=== PATIENT | male | born 1955 | race Caucasian/White ===

== ENCOUNTER 2025-07-12 17:17 | Emergency (ER) | payer OTHER ==
[~2025-07-12] VITALS: Ht 185.4 cm; Wt 82.1 kg
[2025-07-12 17:23] VITALS: TEMP 97
[2025-07-12] MEDS: HYDROcodone/acetaminophen 10/325mg tab PO ONE ×2 (17:52→19:23)
[2025-07-12] MEDS: amox tr/potassium clavulanate 875/125mg TAB PO ONE (18:07)
[2025-07-12] MEDS: TETanus/Pertussis (Acell)/Diphther VAC/PF (Tdap-Adult) 0.5ml syringe IMVAC ONE (18:08)
[2025-07-12] MEDS: LIDOcaine 1% W/epiNEPHrine 1:100,000 20ml vial IJ ONE (18:09)
--- NOTE | 2025-07-12 18:27 | Physician Documentation ---
History of Present Illness ~ Chief Complaint: Bite-animal Stated Complaint: DOG BITE Time Seen by MD: 17:36 Source: patient Mode of Arrival: POV, Ambulatory Exam Limitations: no limitations HPI 69-year-old male with chief complaint dog bites to left hand and right forearm and right hand that occurred from his dog just prior to arrival. He states he was playing fetch with his dog when his dog bit his arm rather than the stick. This has never happened before. Dog has had all of his immunizations. He has had the dogs since a valgus 6-month-old in the dog is now a two and a years old. Tetanus within 5 years?: Yes Medication Reconciliation Allergies: Coded Allergies: No Known Allergies (Unverified , 07/12/25) Scheduled Amox Tr/Potassium Clavulanate (Augmentin 875-125 Tablet), 1 TAB PO Q12H Scheduled PRN Hydrocodone Bit/Acetaminophen (Hydrocodon-Acetaminophn 10-325 tablet), 1 TAB PO QID PRN PRN for pain Past Medical History Past Medical History: Chronic Back Pain, *PSYCH* (PTSD ) Past Surgical History: noncontributory Lives with: Alone Lives In: Home Review of Systems All Other Systems at this time: Reviewed and Negative Physical Exam Vital Signs: Temperature: 97.0, Source: Temporal, Heart Rate: 66, Respiratory Rate: 16, BP: 172/97, Pulse Oximetry: 98, Weight: 82.100 Oxygen Flow Rate: 0 Physical Exam General Appearance: Alert, WD/WN. NAD. HEENT: NCAT, PERRL, EOMI. Neck: Supple, trachea midline. Cardiovascular: RRR. No m/r/g. PV: Radial pulses 2+ bilaterally, cap refill less than 2 seconds at digits Lungs: CTAB. Breathing unlabored Extremities: Left hand: Bite to left dorsal surface of hand which is a puncture wound that has covered with a flap skin, no active bleeding, no surrounding ecchymosis, erythema or edema. Active range motion of the left hand digits full. Right forearm: On volar surface of forearm there are two lacerations that are approximately 4 cm in length each and are fairly deep visible fat, on the dorsal surface of the distal forearm there two puncture wounds. Active range motion of right hand and digits full. Skin: lacerations and punctures wounds described above. Neurological: Alert and oriented x4, normal gait. Psychiatric: Affect congruent with mood. Procedures Laceration/Wound Repair Laceration/Wound Repair #1: Location: RIGHT FOREARM Length (cm): 4 Anesthesia: Lidocaine w/ Epi Volume Anesthetic (mls): 5 Prep: irrigated by nurse Irrigated w/ Saline (mls): 500 Debrided: minimal Undermining: none Margins: revised Foreign Body: not identified Repaired: skin Wound Repaired With: sutures Suture Size/Type: 4-0, ethilon Dressing Applied: simple Tolerated Procedure Well?: yes, no complications Laceration/Wound Repair #2: Location: RIGHT FOREARM Length (cm): 4 Anesthesia: Lidocaine w/ Epi Volume Anesthetic (mls): 5 Prep: irrigated by nurse Irrigated w/ Saline (mls): 500 Debrided: minimal Undermining: none Margins: revised Foreign Body: not identified Repaired: skin Wound Repaired With: sutures Suture Size/Type: 4-0, ethilon Dressing Applied: simple Tolerated Procedure Well?: yes, no complications Laceration/Wound Repair #3: Location: RIGHT FOREARM Length (cm): 1 Anesthesia: Lidocaine w/ Epi Volume Anesthetic (mls): 2 Prep: irrigated by nurse Irrigated w/ Saline (mls): 250 Debrided: minimal Undermining: none Margins: revised Foreign Body: not identified Repaired: skin Wound Repaired With: sutures Suture Size/Type: 4-0, ethilon Dressing Applied: simple Tolerated Procedure Well?: yes, no complications Laceration/Wound Repair #4: Location: RIGHT FOREARM Length (cm): 1 Anesthesia: Lidocaine w/ Epi Volume Anesthetic (mls): 250 Prep: irrigated by nurse Debrided: minimal Undermining: none Margins: revised Foreign Body: not identified Repaired: skin Wound Repaired With: sutures Suture Size/Type: 4-0, ethilon Dressing Applied: simple Tolerated Procedure Well?: yes, no complications Progress Results/Orders Results/Orders Orders - DELILAH CAMPOS Laceration/I&D Tray Set Up (07/12/25 17:58) Completed Orders - DELILAH CAMPOS Hydrocodone/Apap 10/325 ([place] 10/325mg (07/12/25 17:45) Lidocaine 1% W/Epi 1:100,000 (Xylocaine (07/12/25 18:00) Tetanus/Pertuss/Diph Acell/Pf (Boostrix (07/12/25 18:00) Amox Tr/Potassium Clavulanate (Augmentin (07/12/25 18:00) Hydrocodone/Apap 10/325 ([place] 10/325mg (07/12/25 19:15) Vital Signs 07/12/25 07/12/25 07/12/25 07/12/25 17:23 17:37 17:37 17:52 Temp 97.0 Pulse 70 66 Resp 18 16 16 16 B/P (MAP) 168/91 172/97 (122) Pulse Ox 97 98 O2 Flow Rate 0 0 07/12/25 19:36 Pulse 67 Resp 20 B/P (MAP) 148/68 Pulse Ox 97 Medical Decision Making Additional information obtaine: N/A Findings n/a Differential Dx:Considerations: Include: Abrasion, Allergic reaction, Anaphylaxis, Cellulitis, Contusion, Fracture, Hematoma, Insect envenomation, Laceration, Neurovascular injury, Punture wound, Retained foreign body, Urticaria, Other Additional Comment Patient has no evidence for neurovascular injury he is moving his fingers in his hands normally with full AROM. Departure Time of Disposition: 18:29 Disposition: 01 HOME / SELF CARE / HOMELESS Impression: Primary Impression: Dog bite Qualified Codes: W54.0XXA - Bitten by dog, initial encounter Additional Impression: Immunization due Condition: Stable Discharge Instructions: Animal Bite, Adult Additional Instructions: SUTURES NEED TO BE REMOVED IN 7DAYS ANTIBIOTICS SENT TO PHARMACY Referrals: NO PRIMARY CARE PROVIDER (PCP) Prescriptions Hydrocodone Bit/Acetaminophen (Hydrocodon-Acetaminophn 10-325 tablet) 10mg- 325mg Tablet 1 TAB PO QID PRN PRN for pain for 4 Days, #16 TAB DX: DOG BITE W54.0XXA Prov: DELILAH CAMPOS 07/12/25 Amox Tr/Potassium Clavulanate (Augmentin 875-125 Tablet) 1 Each Tablet 1 TAB PO Q12H for 10 Days, #20 TAB Prov: DELILAH CAMPOS 07/12/25 Education Educated: Patient Educated regarding: diagnosis, treatment, need for follow up Signature Scribe Signature: x Attestation: DELILAH Aj Jul 12, 2025 18:27
[2025-07-12] MEDS ORDERED: HYDR-3972 PO (18:28)
[2025-07-12] MEDS ORDERED: AMOX-117 PO (18:28)
[2025-07-12 19:36] VITALS: BP 148/68; PULSE 67; RESP 20; O2SAT 97
== END 2025-07-12 19:38 | disposition home or self-care (01) ==
LOC: ER 17:18
DX: S61.452A Open bite of left hand, initial encounter (principal); G89.29 Other chronic pain; W54.0XXA Bitten by dog, initial encounter; Y93.89 Activity, other specified; Y92.89 Other specified places as the place of occurrence of the external cause; Y99.8 Other external cause status
CPT/HCPCS: 12004; 90471; 90715; 99284; A6222; A6223; J3490; A6449

== ENCOUNTER 2025-08-30 10:48 | Emergency (ER) | payer OTHER ==
[~2025-08-30] VITALS: Ht 185.4 cm; Wt 80.5 kg
[2025-08-30 11:02] VITALS: BP 133/67; PULSE 68; RESP 18; TEMP 98; O2SAT 96
[2025-08-30] MEDS: LIDOcaine 1% W/epiNEPHrine 1:100,000 20ml vial IJ ONE (11:43)
[2025-08-30] MEDS: bacitracin 15gm ointment TP ONE (11:43)
[2025-08-30] MEDS ORDERED: AMOX-117 PO (12:17)
[2025-08-30] MEDS ORDERED: HYDR-3965 PO (12:18)
--- NOTE | 2025-08-30 12:19 | Physician Documentation ---
History of Present Illness ~ Chief Complaint: Bite-animal Stated Complaint: R HAND PAIN Time Seen by MD: 11:13 HPI Presents with right hand pain with bite gallegos and laceration which is bleeding just prior to arrival but controlled with pressure and dressing after a dog bite from his own dog while playing Fetch. Last tetanus was 1 year ago. Dog is fully vaccinated. Has full range motion of the right hand and is able to make a fist. Tetanus within 5 years?: Yes Medication Reconciliation Allergies: Coded Allergies: No Known Allergies (Unverified , 08/30/25) Scheduled Amox Tr/Potassium Clavulanate (Augmentin 875-125 Tablet), 1 TAB PO Q12H Scheduled PRN Hydrocodone Bit/Acetaminophen 5/325 MG ([place] 5/325 MG), 1 TAB PO Q12H PRN PRN for pain Past Medical History Past Medical History: Chronic Back Pain, *PSYCH* Past Surgical History: noncontributory Smoking Status: Current every day smoker Lives with: Alone Lives In: Home Review of Systems All Other Systems at this time: Reviewed and Negative Physical Exam Vital Signs: RN Vital Signs have been reviewed: Yes, Temperature: 98.0, Source: Temporal, Heart Rate: 68, Respiratory Rate: 18, BP: 133/67, Pulse Oximetry: 96, Weight: 80.500 Oxygen Flow Rate: 0 Pulse Oximetry Reflects: adequate oxygenation Procedures Laceration/Wound Repair Laceration/Wound Repair : Location: Right hand Length (cm): 4 Volume Anesthetic (mls): 3 Prep: irrigated by nurse Irrigated w/ Saline (mls): 1000 Debrided: minimal Undermining: none Margins: flaps aligned Foreign Body: not identified Repaired: skin Wound Repaired With: sutures Suture Size/Type: 4-0, ethilon Number of Superficial Sutures: 2 (Loosely sutured) Layer Closure?: No Splint Applied?: No Sling Applied?: No Tolerated Procedure Well?: yes, no complications Progress Results/Orders Reviewed/noted all lab results: Yes Results/Orders Orders - KANWAL RAMSEY Laceration/I&D Tray Set Up (08/30/25 11:13) Wound Care Orders (08/30/25 11:13) Completed Orders - KANWAL RAMSEY Lidocaine 1% W/Epi 1:100,000 (Xylocaine (08/30/25 11:15) Bacitracin Ointment (Bacitracin Ointment (08/30/25 11:15) Medications Received in ER Medications (Trade) Dose Ordered Sig/Chance Route PRN Reason Start Time Stop Time Status Last Admin Dose Admin (Xylocaine 1%-EPI 1:100,000) 5 ml ONCE ONCE IJ 08/30/25 11:15 08/30/25 11:19 DC 08/30/25 11:43 5 ML (bacitracin ointment) 1 applic ONCE ONCE TP 08/30/25 11:15 08/30/25 11:19 DC 08/30/25 11:43 1 APPLIC Vital Signs 08/30/25 11:02 Temp 98.0 Pulse 68 Resp 18 B/P (MAP) 133/67 Pulse Ox 96 O2 Flow Rate 0 Medical Decision Making Additional information obtaine: old records Findings Right hand laceration and puncture gallegos from dog bite from his own dog while playing Fetch. Dog is fully vaccinated against rabies and he had a tetanus vaccine last year. The puncture gallegos in laceration are superficial but since it is on the palmar surface and gaping open with movement of the thumb, I placed 2 loose, superficial simple sutures to help tack it together. He was given strict instructions to monitor for infection but I have placed him on Augmentin as well as given him some [place] for the pain. Differential Dx:Considerations: Include: Abrasion, Cellulitis, Fracture, Neurovascular injury, Punture wound, Retained foreign body Departure Disposition: 01 HOME / SELF CARE / HOMELESS Impression: Primary Impression: Dog bite Condition: Stable Discharge Instructions: Animal Bite, Adult Additional Instructions: Please keep wound dressing on for the next 24 hours and change her bandage. You have been provided with some bandage material. Please use the bacitracin ointment to help keep wound moist. If you monitor for any signs of infection in these occur please return immediately. Signs to watch out for are increased redness, increased pain, white discharge from the site. You do have 2 sutures which will need to be removed in 10 days. You can do this here, urgent care or your regular doctor's office. Please follow up with the primary care provider in the next week for a wound check. Take all antibiotics as prescribed and finish the course. You can use Tylenol and/or ibuprofen for pain relief at home. You have also been provided with some [place] that you can use as needed for pain. Referrals: NO PRIMARY CARE PROVIDER (PCP) Prescriptions Hydrocodone Bit/Acetaminophen 5/325 MG ([place] 5/325 MG) 5 Mg/325 Mg Tablet 1 TAB PO Q12H PRN PRN for pain for 5 Days, #10 TAB Prov: KANWAL RAMSEY 08/30/25 Amox Tr/Potassium Clavulanate (Augmentin 875-125 Tablet) 1 Each Tablet 1 TAB PO Q12H for 10 Days, #20 TAB Prov: KANWAL RAMSEY 08/30/25 Education Educated: Patient Educated regarding: diagnosis, treatment, prognosis, need for follow up Additional Comment Medical Screen Exam This patient recieved a medical screening examination. After reviewing the individual's medical complaints with presenting symptoms and performing an appropriate physical examination, it was determined that no immediate life- threatening emergency medical condition is present. This individual is also not a women having contractions. Signature Scribe Signature: . Attestation: Scribed for Kanwal Ramsey by Kanwal Ramsey - ZIYAD . 08/30/25 12:25 Parts of this note were created using [employer] voice recognition software program. While efforts were made to correct any mistakes made by this voice recognition software program, nonsensical phrases may remain in this note. In addition, there may be errors and syntax, grammar, content and spelling. KANWAL RAMSEY Aug 30, 2025 12:19
[2025-08-31] MEDS ORDERED: HYDR-3965 PO (11:39)
== END 2025-08-30 12:30 | disposition home or self-care (01) ==
LOC: ER 10:49
DX: S61.411A Laceration without foreign body of right hand, initial encounter (principal); G89.29 Other chronic pain; F17.200 Nicotine dependence, unspecified, uncomplicated; Z60.2 Problems related to living alone; W54.0XXA Bitten by dog, initial encounter; Y93.89 Activity, other specified; Y92.89 Other specified places as the place of occurrence of the external cause; Y99.8 Other external cause status
CPT/HCPCS: 12002; 99283; J3490; A4565; A6258; A6449

== ENCOUNTER 2025-08-31 10:18 | Emergency (ER) | payer OTHER ==
[~2025-08-31] VITALS: Ht 185.4 cm; Wt 80.5 kg
[~2025-08-31 10:18] MED LIST: AMOX-117 PO; HYDR-3965 PO
[2025-08-31 10:25] VITALS: BP 144/81; PULSE 91; RESP 18; TEMP 98.4; O2SAT 99
--- NOTE | 2025-08-31 11:09 | Physician Documentation ---
HPI ~ General Chief Complaint: Medication Refill Stated Complaint: MED REQUEST Time Seen by MD: 11:38 History of Present Illness HPI Comments This is a 69-year-old male who presents requesting hydrocodone. He reports that he was seen here yesterday for a dog bite. He went to the pharmacy to apple picker the hydrocodone he was told he would receive for the pain pertinent to the dog bite, and was told by the pharmacist that the prescription was canceled. He does admit that he intermittently gets hydrocodone for chronic back pain. Notes that he does not currently have any on hand. Denies fevers or chills, any other concerns. Medication Reconciliation Allergies: Coded Allergies: No Known Allergies (Unverified , 08/30/25) Scheduled Amox Tr/Potassium Clavulanate (Augmentin 875-125 Tablet), 1 TAB PO Q12H Scheduled PRN Hydrocodone Bit/Acetaminophen 5/325 MG ([place] 5/325 MG), 1 TAB PO Q12H PRN PRN for pain Hydrocodone Bit/Acetaminophen 5/325 MG ([place] 5/325 MG), 1 TAB PO TID PRN for pain Past Medical History Past Medical History: Chronic Back Pain, *PSYCH* Past Surgical History: noncontributory Lives with: Alone Lives In: Home Review of Systems ROS As stated above in the HPI, otherwise all systems are reviewed and negative. Physical Exam Physical Exam Vital Signs: Temperature: 98.4, Source: Temporal, Heart Rate: 91, Respiratory Rate: 18, BP: 144/81, Pulse Oximetry: 99, Weight: 80.450 Oxygen Flow Rate: 0 Physical Exam General: Alert, no apparent distress. HEENT: PERRL, EOMI, no injection, moist mucous membranes. Neck: Full range of motion. Respiratory: Lungs clear, no respiratory distress. Chest: No accessory muscle use. Cardiovascular: Regular rate and rhythm, no murmurs. Gastrointestinal: Soft, nontender, nondistended. Bowels sounds present. Extremities: Normal range of motion, no deformity. Neurologic: Oriented x4. Psychiatric: Normal mood and affect. Skin: Normal color, warm and dry. No edema, no ecchymosis. Bandaged right hand. Progress Results/Orders Results/Orders Vital Signs 08/31/25 10:25 Temp 98.4 Pulse 91 Resp 18 B/P (MAP) 144/81 Pulse Ox 99 O2 Flow Rate 0 Medical Decision Making Additional information obtaine: old records Findings 08/30/25 seen for dog bite. Differential Dx:Considerations: Include: Adverse circumstances, Economic, Psychosocial, Medical services unavail., Medication refill, Medication non- compliance Additional Comment Requests hydrocodone. Departure Time of Disposition: 11:38 Disposition: 01 HOME / SELF CARE / HOMELESS Impression: Primary Impression: Dog bite Condition: Stable Discharge Instructions: Animal Bite, Adult Additional Instructions: You are being given 4 hydrocodone until you can see your PCP to discuss further hydrocodone refill. This is just for the dog bite pain as we do not do chronic pain management out of the ER. Keep your upcoming PCP appt. Referrals: NO PRIMARY CARE PROVIDER (PCP) Prescriptions Hydrocodone Bit/Acetaminophen 5/325 MG ([place] 5/325 MG) 5 Mg/325 Mg Tablet 1 TAB PO TID PRN for pain for 2 Days, #4 TAB Prov: CHASE DAVILA NP 08/31/25 Education Educated: Patient Educated regarding: diagnosis, treatment, prognosis, need for follow up Signature Scribe Signature: x Attestation: The note accurately reflects work and decisions made by me.Chase Howard NP 08/31/25 11:41 CHASE DAVILA NP Aug 31, 2025 11:09
[2025-08-31] MEDS ORDERED: HYDR-3965 PO (11:39)
== END 2025-08-31 12:04 | disposition home or self-care (01) ==
LOC: ER 10:19
DX: S61.451A Open bite of right hand, initial encounter (principal); Z76.0 Encounter for issue of repeat prescription; G89.29 Other chronic pain; Z60.2 Problems related to living alone; W54.0XXA Bitten by dog, initial encounter; Y93.89 Activity, other specified; Y92.89 Other specified places as the place of occurrence of the external cause; Y99.8 Other external cause status
CPT/HCPCS: 99282